=== PATIENT | female | born 1950 | race African-American/Black ===

== ENCOUNTER 2017-01-26 15:36 | Inpatient (IN) | payer MEDICARE ==
[~2017-01-26] VITALS: Ht 160 cm; Wt 100.1 kg
[2017-01-26] VITALS (8 sets, daily range): BP systolic 173–205; BP diastolic 75–111; PULSE 85–118; RESP 16–26; O2SAT 96–100
--- NOTE | 2017-01-26 15:56 | PD ---
HPI Chief Complaint: Stroke Alert Time Seen by Provider: 15:44 Travel History International Travel<30 days: No Contact w/Intl Traveler<30days: No Traveled to known affect area: No History of Present Illness HPI BROUGHT IN BY EVAC STROKE ALERT, EMS STATES 3HRS AGO LAST SEEN NORMAL, THIS WAS QUESTIONED AND FAMILY CALLED BUT BEST ANSWER IS THAT FACIAL DROOP WAS NOTED MAYBE AROUND NOON...BUT THAT SHE HAD BEEN EXHIBITING ABNORMAL RECALL AND CONFUSION SINCE LAST NIGHT. PFSH Social History Tobacco Use: No Allergies-Medications (Allergen,Severity, Reaction): Coded Allergies: Penicillin (Verified Allergy, Severe, Wheezing, 01/26/17) Reported Meds & Prescriptions Reported Meds & Active Scripts Active Active Prescriptions or Reported Medications Unobtainable Review of Systems Except as stated in HPI: all other systems reviewed are Neg Neurologic: Positive: Slurred Speech, Sensory Disturbance Physical Exam Narrative GENERAL: SKIN: Warm and dry. HEAD: Atraumatic. Normocephalic. EYES: Pupils equal and round. No scleral icterus. No injection or drainage. ENT: No nasal bleeding or discharge. Mucous membranes pink and moist. NECK: Trachea midline. No JVD. CARDIOVASCULAR: Regular rate and rhythm. RESPIRATORY: No accessory muscle use. Clear to auscultation. Breath sounds equal bilaterally. GASTROINTESTINAL: Abdomen soft, non-tender, nondistended. Hepatic and splenic margins not palpable. MUSCULOSKELETAL: Extremities without clubbing, cyanosis, or edema. No obvious deformities. NEUROLOGICAL: Awake ALERT, SLURRED SPEECH, LEFT SIDED FACIAL PALSY, LLE 3/5, RUE /LUE/RLE 5/5 STRENGTH PSYCHIATRIC: Appropriate mood and affect; insight and judgment normal. Data Data Last Documented VS Vital Signs Date Time Temp Pulse Resp B/P Pulse Ox O2 Delivery O2 Flow Rate FiO2 01/26/17 16:35 93 21 173/111 100 01/26/17 16:04 Room Air Orders Diet Npo (01/26/17 Dinner) Activity Bed Rest (01/26/17 ) Electrocardiogram (01/26/17 ) I-Stat Creatinine (01/26/17 15:44) I-Stat Profile (01/26/17 15:44) Prothrombin Time / Inr (Pt) (01/26/17 15:44) Act Partial Throm Time (Ptt) (01/26/17 15:44) Complete Blood Count With Diff (01/26/17 15:44) Fibrinogen (01/26/17 15:44) Creatine Kinase (Cpk) (01/26/17 15:44) Troponin I (01/26/17 15:44) Ua Includes Microscopic (01/26/17 15:44) Drug Screen, Random Urine (01/26/17 15:44) Type And Screen (01/26/17 15:44) Ct Brain W/O Iv Contrast(Rout) (01/26/17 ) Chest, Single Ap (01/26/17 ) Cta Brain W Iv Contrast W 3d (01/26/17 15:44) Cta Neck W Iv Contrast W 3d (01/26/17 15:44) Ct Cerebral Perf W Iv Cont W3d (01/26/17 15:44) Beta Hcg (Quant/Titer) (01/26/17 15:44) Consult Neurology (01/26/17 ) Blood Glucose (01/26/17 15:44) Ecg Monitoring (01/26/17 15:44) Neuro Checks Q2HX12,Q4H (01/26/17 15:44) Nursing Bedside Swallow Assess .ONCE (01/26/17 15:44) Iv Access Insert/Monitor (01/26/17 15:44) NPO (01/26/17 15:44) Oximetry (01/26/17 15:44) Oxygen Administration (01/26/17 15:44) Resp Oxygen Blaine C Titrat 1-4 L (01/26/17 15:44) Cath For Specimen (01/26/17 15:44) Aspirin Chew (Aspirin Chew) (01/26/17 16:30) Sodium Bicarbonate 8.4% Inj (Sodium Bica (01/26/17 16:30) Albuterol Concentrated Neb (Albuterol Co (01/26/17 16:30) (Hub Use Only)Inp Phy Cons/Ref (01/26/17 ) Albuterol Neb (Albuterol Neb) (01/26/17 16:32) Labetalol Inj (Trandate Inj) (01/26/17 16:45) Iohexol 350 Inj (Omnipaque 350 Inj) (01/26/17 16:35) CKMB (01/26/17 15:48) CKMB% (01/26/17 15:48) Admit Order (Ed Use Only) (01/26/17 16:50) Labs Laboratory Tests Test 01/26/17 01/26/17 15:48 15:54 Bedside Hemoglobin 15.3 G/DL Bedside Hematocrit 45.0 % Bedside Sodium 135 MMOL/L Bedside Potassium 6.9 MMOL/L Bedside Chloride 104 MMOL/L Bedside Blood Urea Nitrogen 24 MG/DL Bedside Creatinine 1.0 MG/DL Bedside Glucose 343 MG/DL Total Creatine Kinase 268 U/L Creatine Kinase MB 0.8 NG/ML Creatine Kinase MB % 0.3 % Troponin I 0.03 NG/ML Human Chorionic Gonadotropin, 3 MIU/ML Quant White Blood Count 12.4 TH/MM3 Red Blood Count 4.82 MIL/MM3 Hemoglobin 14.5 GM/DL Hematocrit 44.1 % Mean Corpuscular Volume 91.5 FL Mean Corpuscular Hemoglobin 30.1 PG Mean Corpuscular Hemoglobin 32.9 % Concent Red Cell Distribution Width 13.1 % Platelet Count 282 TH/MM3 Mean Platelet Volume 10.0 FL Neutrophils (%) (Auto) 78.3 % Lymphocytes (%) (Auto) 15.3 % Monocytes (%) (Auto) 5.8 % Eosinophils (%) (Auto) 0.1 % Basophils (%) (Auto) 0.5 % Neutrophils # (Auto) 9.7 TH/MM3 Lymphocytes # (Auto) 1.9 TH/MM3 Monocytes # (Auto) 0.7 TH/MM3 Eosinophils # (Auto) 0.0 TH/MM3 Basophils # (Auto) 0.1 TH/MM3 CBC Comment DIFF FINAL Differential Comment Prothrombin Time 10.6 SEC Prothromb Time International 1.0 RATIO Ratio Activated Partial 25.3 SEC Thromboplast Time Fibrinogen 442 mg/dL Blood Type O POSITIVE Antibody Screen NEGATIVE Blood Bank Comment [facility] Medical Decision Making Medical Screen Exam Complete: Yes Emergency Medical Condition: Yes Medical Record Reviewed: Yes Interpretation(s) NSR, 94, LVH, NO STEMI PATTERN NOTED Differential Diagnosis ICH V CVA Narrative Course UNCLEAR TIMING BASED ON HISTORY...HOWEVER CT FINDINGS PER RADIOLOGIST ARE C/W STROKE FINDINGS THAT ARE AT LEAST 8HRS OLD, THUS PT IS OUT OF TPA WINDOW, DR AQUINO (NEURO) AGREES AND REQUESTS WOKUP WITH ASPIRIN 325MG. Critical Care Narrative CRITICAL CARE NOTE: With evaluation of the patient, labs, EKG, receipt of radiologic studies, administration of medications, reevaluation the patient and discussion of the patient with the admitting physicians, the total critical care time was [60] minutes. Time to perform other separately billable procedures was not included in the critical care time. Physician Communication Physician Communication SPOKE WITH DR AQUINO, AND RADIOLOGIST, PT IS HAVING CVA BUT OUTSIDE OF WINDOW AND WILL NOT TPA Diagnosis Primary Impression: Ischemic cerebrovascular accident (CVA) of frontal lobe Admitting Information Admitting Physician Requests: Admit Scripts Unable to Obtain Active Prescriptions or Reported Meds Adonay Phillip MD Jan 26, 2017 15:56 Adonay Phillip MD Jan 26, 2017 15:56
[2017-01-26 16:05] LABS: AUTOMATED NEUTROPHIL # 9.7 TH/MM3 (1.8-7.7); BASOPHIL # 0.1 TH/MM3 (0-0.2); BASOPHIL % 0.5 % (0.0-2.0); EOSINOPHIL % 0.1 % (0.0-4.0); HEMATOCRIT 44.1 % (35.0-46.0); HEMO FLAGS DIFF FINAL; LYMPH % 15.3 % (9.0-44.0); LYMPHOCYTE # 1.9 TH/MM3 (1.0-4.8); MEAN CELL VOLUME 91.5 FL (80.0-100.0); MEAN CORPUSCULAR HEMOGLOBIN 30.1 PG (27.0-34.0); MEAN CORPUSCULAR HGB CONC 32.9 % (32.0-36.0); MONO % 5.8 % (0.0-8.0); NEUT % 78.3 % (16.0-70.0); PLATELET COUNT 282 TH/MM3 (150-450); RED BLOOD COUNT 4.82 MIL/MM3 (4.00-5.30); RED CELL DISTRIBUTION WIDTH 13.1 % (11.6-17.2); WHITE BLOOD COUNT 12.4 TH/MM3 (4.0-11.0)
[2017-01-26 16:11] LABS: I-STAT POTASSIUM 6.9 MMOL/L (3.5-4.9)
--- NOTE | 2017-01-26 16:13 | RADRPT ---
EXAM DATE/TIME: 01/26/2017 15:54 [facility] COMPARISON: No previous studies available for comparison. INDICATIONS : Lethargy, poss cva. RADIATION DOSE: 48.81 CTDIvol (mGy) This report was called by Dr. Agarwal to Dr. Pihllip at 4: 07 PM on 01/26/2017. MEDICAL HISTORY : Hypertension. diabetes, high colesterol SURGICAL HISTORY : None. ENCOUNTER: Initial ACUITY: 1 day PAIN SCALE: Non-responsive LOCATION: Bilateral cranial TECHNIQUE: Multiple contiguous axial images were obtained of the head. Using automated exposure control and adj ustment of the mA and/or kV according to patient size, radiation dose was kept as low as reasonably a chievable to obtain optimal diagnostic quality images. FINDINGS: CEREBRUM: There is a well-defined area of low density cytotoxic edema involving the right frontal lobe in the m id to low convexity and extending into the right basal ganglia. Ventricles are normal in size. No ev idence of midline shift, mass lesion, hemorrhage or acute infarction. No extra-axial fluid collectio ns are seen. POSTERIOR FOSSA: The cerebellum and brainstem demonstrate no acute finding. The 4th ventricle is midline. The cerebe llopontine angle is unremarkable. EXTRACRANIAL: Visualized sinuses are clear. SKULL: The calvaria is intact. No evidence of skull fracture. CONCLUSION: 1. There is a band of low density in the right frontal lobe representing cytotoxic edema likely repre senting an area of recent ischemia but likely at least 6-8 hours ago. There is no associated hemorrha ge or significant mass effect. 2. No other acute finding is identified. Juan Agarwal MD on January 26, 2017 at 16:05 Board Certified Radiologist. This report was verified electronically.
[2017-01-26 16:15] LABS: APTT (PATIENT) 25.3 SEC (24.3-30.1); PROTHROMBIN TIME - PATIENT 10.6 SEC (9.8-11.6)
[2017-01-26] MEDS ORDERED: SODIUM BICARBONATE 8.4% SOLN 50 MEQ/50 ML VIAL SLOW IVP ONE (16:30)
[2017-01-26] MEDS ORDERED: RESP: ALBUTEROL CONC 2.5 MG/0.5 ML NEB INH ONE (16:30)
[2017-01-26] MEDS ORDERED: ASPIRIN 81 MG CHEW TAB CHEW ONE (16:30)
[2017-01-26] MEDS ORDERED: RESP: ALBUTEROL 2.5 MG/3 ML NEB (SCH) ONE (16:32)
[2017-01-26] MEDS ORDERED: IOHEXOL 350 MG/ML 10 ML VIAL (for RAD DIAG) IV ONE (16:35)
[2017-01-26] MEDS ORDERED: LABETALOL HCL 100 MG/20 ML VIAL IV PUSH ONE ×2 (16:45→23:45)
[2017-01-26] MEDS ORDERED: INSULIN HUMAN REGULAR 1,000 UNITS/10 ML VIAL IV PUSH ONE (16:45)
--- NOTE | 2017-01-26 16:47 | RADRPT ---
EXAM DATE/TIME: 01/26/2017 16:11 [facility] COMPARISON: CT BRAIN W/O CONTRAST, January 26, 2017, 15:54. INDICATIONS : Lethargy poss cva IV CONTRAST: 100 cc Omnipaque 350 (iohexol) IV ; Cumulative dose for multiple exams. RADIATION DOSE: 27.80 CTDIvol (mGy) ; Combined studies MEDICAL HISTORY : Hypertension. Cholelithiasis. diabetes, high colesterol SURGICAL HISTORY : None. ENCOUNTER: Initial ACUITY: 1 day PAIN SCALE: Non-responsive LOCATION: Bilateral cranial TECHNIQUE: Volumetric scanning was performed using a multi-row detector CT scanner. The data was post processed with a variety of visualization algorithms including full volume maximum intensity projection, multi -planar sliding thin slab reformation, curved planar reformation, and surface rendering techniques. Using automated exposure control and adjustment of the mA and/or kV according to patient size, radiat ion dose was kept as low as reasonably achievable to obtain optimal diagnostic quality images. FINDINGS: CT examination earlier demonstrated possible subacute right anterior MCA territory infarct with a wel l-demarcated band of cytotoxic edema extending from the right anterior parietal mid convexities to th e right basal ganglia. There is no evidence for large vessel occlusion involving the right M1 or prox imal M2 branches although clearly there is decreased vascularity in the region of cytotoxic edema. There is no evidence for aneurysm, vessel truncation or stenosis, and no evidence for vascular malfor mation. There is origin of the right [employer]. Codominant vertebral arteries with patent basilar art alfonzo. Patent posterior cerebral arteries. CONCLUSION: 1. No evidence for large vessel occlusion involving the right carotid or MCA branches to account for the apparent Subacute right anterior MCA territory infarction. Consider MRI examination to evaluate f or underlying lesion once patient is stable. Frank Davidson MD on January 26, 2017 at 16:34 Board Certified Radiologist. This report was verified electronically.
[2017-01-26 16:48] LABS: CKMB 0.8 NG/ML (0.5-3.6)
--- NOTE | 2017-01-26 16:56 | RADRPT ---
EXAM DATE/TIME: 01/26/2017 16:28 [facility] COMPARISON: No previous studies available for comparison. INDICATIONS : Stroke alert. Chest pain. MEDICAL HISTORY : None. SURGICAL HISTORY : None. ENCOUNTER: Initial ACUITY: 1 day PAIN SCORE: 0/10 LOCATION: Bilateral chest FINDINGS: A single view of the chest demonstrates the lungs to be symmetrically aerated without evidence of mas s, infiltrate or effusion. The cardiomediastinal contours are unremarkable. Osseous structures are intact. CONCLUSION: No acute cardiopulmonary disease. Frank Davidson MD on January 26, 2017 at 16:54 Board Certified Radiologist. This report was verified electronically.
[2017-01-26] MEDS ORDERED: INSULIN HUMAN REGULAR 1,000 UNITS/10 ML VIAL SQ ONE (17:00)
[2017-01-26] MEDS ORDERED: GLUCAGON 1 MG/ML VIAL OTHER PRN (17:15)
[2017-01-26] MEDS ORDERED: DEXTROSE 50% IN WATER 50 ML VIAL(D50) IV PRN (17:15)
--- NOTE | 2017-01-26 17:16 | RADRPT ---
EXAM DATE/TIME: 01/26/2017 16:11 [facility] COMPARISON: No previous studies available for comparison. INDICATIONS : Stroke alert, lethargy. IV CONTRAST: 100 cc Omnipaque 350 (iohexol) IV ; Cumulative dose for multiple exams. RADIATION DOSE: 27.80 CTDIvol (mGy) ; Combined studies MEDICAL HISTORY : Hypertension. Diabetes, high cholesterol SURGICAL HISTORY : None. ENCOUNTER: Initial ACUITY: 1 day PAIN SCALE: Non-responsive LOCATION: Bilateral neck Elevated flow velocities and ICA/CCA ratios have been found to correlate with increased degrees of vessel stenosis, calculated as percentage of diameter relative to a normal segment of distal ICA/CCA. TECHNIQUE: Volumetric scanning was performed using a multirow detector CT scanner. The data was post processed with a variety of visualization algorithms including full-volume maximum intensity projection, multip lanar sliding thin-slab reformation, curved-planar reformation, and surface-rendering techniques. Us ing automated exposure control and adjustment of the mA and/or kV according to patient size, radiatio n dose was kept as low as reasonably achievable to obtain optimal diagnostic quality images. FINDINGS: AORTIC ARCH: There is Center 3 vessel arch anatomy. The proximal arch vessels are tortuous but otherwise patent. RIGHT CAROTID: The common carotid artery is intact. The carotid bulb has a normal configuration. There are calcified plaque noted in the distal bulb at the origin of the internal and external carotid arteries. Result in mild to moderate external carotid artery stenosis. Mild stenosis of the internal carotid artery or igin. The internal carotid artery lumen is otherwise smooth without stenosis. LEFT CAROTID: The common carotid artery is intact. The carotid bulb has a normal configuration and contains mild c alcified plaque extending to the origin of the internal carotid artery. There is mild stenosis of the internal iliac artery origin. The internal carotid artery lumen is otherwise smooth without stenosis . The external carotid artery is intact. VERTEBRALS: The vertebral arteries have a symmetric diameter. No stenotic lesions are seen. Miscellaneous: Visualized lung apices are clear. Thyroid appears unremarkable by CT. There is no significant cervica l mass. CONCLUSION: 1. Mild calcified plaque in the carotid bulbs bilaterally without significant flow-limiting stenosis. No evidence for dissection or other vascular abnormality. Frank Davidson MD on January 26, 2017 at 17:06 Board Certified Radiologist. This report was verified electronically.
--- NOTE | 2017-01-26 17:20 | HHI.HP ---
[facility] No Primary Care Physician Admission Diagnosis ACUTE CVA (RIGHT FRONTAL) Diagnoses: (1) Ischemic cerebrovascular accident (CVA) of frontal lobe Diagnosis: Principal Chief Complaint: ' stroke alert'. Travel History International Travel<30 Days: No Contact w/Intl Traveler <30 Da: No Traveled to Known Affected Are: No History of Present Illness patient is a 66 y/o female with history of diabetes and hypertension who was brought to ER as a stroke alert. she says that she ws noted by the family members that she had a left facial droop around noon time earlier today. she denies any headache, vision changes or any focal weakness. she was brought to ER as a stoke alert however since she was out of window she did not receive TPA. Review of Systems Constitutional: DENIES: Fever, Weight loss, Chills, Night Sweats Eyes: DENIES: Blurred vision, Diplopia, Vision loss, Double Vision Ears, nose, mouth, throat: DENIES: Tinnitus, Vertigo, Throat pain, Epistaxis Respiratory: DENIES: Apneas, Cough, Snoring, Wheezing, Hemoptysis, Sputum production, Shortness of breath Cardiovascular: DENIES: Chest pain, Palpitations, Syncope, Dyspnea on Exertion , PND, Lower Extremity Edema, Orthopnea, Claudication Gastrointestinal: DENIES: Abdominal pain, Black stools, Bloody stools, Constipation, Diarrhea, Nausea, Vomiting, Difficulty Swallowing, Anorexia Genitourinary: DENIES: Urinary frequency, Urgency, Hematuria, Dysuria Musculoskeletal: DENIES: Joint pain, Muscle aches, Stiffness, Joint Swelling Integumentary: DENIES: Rash Neurologic: DENIES: Abnormal gait, Headache, Localized weakness, Paresthesias, Seizures, Speech Problems, Tremor, Poor Balance Psychiatric: DENIES: Anxiety, Confusion, Mood changes, Depression, Hallucinations, Agitation, Suicidal Ideation, Homicidal Ideation, Delusions facial droop. Past Family Social History Past Medical History diabetes mellitus hypertension Reported Medications to be verified. Allergies: Coded Allergies: Penicillin (Verified Allergy, Severe, Wheezing, 01/26/17) Active Ordered Medications Current Medications Aspirin (Aspirin Chew) 324 mg ONCE ONCE CHEW Last administered on 01/26/17 17 :06; Start 01/26/17 at 16:30; Stop 01/26/17 at 16:31; Status DC Insulin Human Regular (NovoLIN R INJ) 10 units ONCE ONCE IV PUSH ; Start at 16:45; Stop 01/26/17 at 16:46; Status Cancel Sodium Bicarbonate (Sodium Bicarbonate 8.4% Inj) 50 meq ONCE ONCE SLOW IVP ; Start 01/26/17 at 16:30; Stop 01/26/17 at 16:31; Status DC Albuterol Sulfate (Albuterol Concentrated Neb) 10 mg ONCE ONCE INH Last administered on 01/26/17 16:30; Start 01/26/17 at 16:30; Stop 01/26/17 at 16:31 ; Status DC Albuterol Sulfate (Albuterol Neb) 2.5 mg STK-MED ONCE .ROUTE ; Start 01/26/17 at 16:32; Stop 01/26/17 at 16:33; Status DC Labetalol HCl (Trandate Inj) 5 mg ONCE ONCE IV PUSH ; Start 01/26/17 at 16:45; Stop 01/26/17 at 16:46; Status DC Iohexol (Omnipaque 350 Inj) 100 ml STK-MED ONCE IV Last administered on 16:35; Start 01/26/17 at 16:35; Stop 01/26/17 at 16:36; Status DC Insulin Human Regular (NovoLIN R INJ) 10 units ONCE ONCE SQ Last administered on 01/26/17 17:00; Start 01/26/17 at 17:00; Stop 01/26/17 at 17:01; Status DC Social History no smoking or drinking. Physical Exam Vital Signs Vital Signs Date Time Temp Pulse Resp B/P Pulse Ox O2 Delivery O2 Flow Rate FiO2 01/26/17 16:35 93 21 173/111 100 01/26/17 16:15 95 22 205/85 99 01/26/17 16:04 96 16 184/84 99 Room Air 01/26/17 16:01 98 Room Air 01/26/17 16:01 98 01/26/17 15:56 85 18 197/90 98 Room Air 01/26/17 15:53 96 01/26/17 15:53 98 Room Air Physical Exam GENERAL: This is a well-nourished, well-developed patient, in no apparent distress. SKIN: No rashes, ecchymoses or lesions. Cool and dry. HEAD: Atraumatic. Normocephalic. No temporal or scalp tenderness. EYES: Pupils equal round and reactive. Extraocular motions intact. No scleral icterus. No injection or drainage. ENT: Nose without bleeding, purulent drainage or septal hematoma. Throat without erythema, tonsillar hypertrophy or exudate. Uvula midline. Airway patent. NECK: Trachea midline. No JVD or lymphadenopathy. Supple, nontender, no meningeal signs. CARDIOVASCULAR: Regular rate and rhythm without murmurs, gallops, or rubs. RESPIRATORY: Clear to auscultation. Breath sounds equal bilaterally. No wheezes , rales, or rhonchi. GASTROINTESTINAL: Abdomen soft, non-tender, nondistended. No hepato-splenomegaly , or palpable masses. No guarding. MUSCULOSKELETAL: Extremities without clubbing, cyanosis, or edema. No joint tenderness, effusion, or edema noted. No calf tenderness. Negative Homans sign bilaterally. NEUROLOGICAL: Awake and alert. mild weakness of the left upper and lower extremities. Laboratory Laboratory Tests Test 01/26/17 01/26/17 15:48 15:54 Bedside Hemoglobin 15.3 Bedside Hematocrit 45.0 Bedside Sodium 135 Bedside Potassium 6.9 Bedside Chloride 104 Bedside Blood Urea Nitrogen 24 Bedside Creatinine 1.0 Bedside Glucose 343 Total Creatine Kinase 268 Creatine Kinase MB 0.8 Creatine Kinase MB % 0.3 Troponin I 0.03 Human Chorionic Gonadotropin, 3 Quant White Blood Count 12.4 Red Blood Count 4.82 Hemoglobin 14.5 Hematocrit 44.1 Mean Corpuscular Volume 91.5 Mean Corpuscular Hemoglobin 30.1 Mean Corpuscular Hemoglobin 32.9 Concent Red Cell Distribution Width 13.1 Platelet Count 282 Mean Platelet Volume 10.0 Neutrophils (%) (Auto) 78.3 Lymphocytes (%) (Auto) 15.3 Monocytes (%) (Auto) 5.8 Eosinophils (%) (Auto) 0.1 Basophils (%) (Auto) 0.5 Neutrophils # (Auto) 9.7 Lymphocytes # (Auto) 1.9 Monocytes # (Auto) 0.7 Eosinophils # (Auto) 0.0 Basophils # (Auto) 0.1 CBC Comment DIFF FINAL Differential Comment Prothrombin Time 10.6 Prothromb Time International 1.0 Ratio Activated Partial 25.3 Thromboplast Time Fibrinogen 442 Blood Type O POSITIVE Antibody Screen NEGATIVE Blood Bank Comment Result Diagram: 01/26/17 1554 Imaging Last Impressions Head CTA 01/26/17 1544 Signed Impressions: Service Date/Time: Thursday, January 26, 2017 16:11 - CONCLUSION: 1. No evidence for large vessel occlusion involving the right carotid or MCA branches to account for the apparent Subacute right anterior MCA territory infarction. Consider MRI examination to evaluate for underlying lesion once patient is stable. Frank Davidson MD Head CT 01/26/17 0000 Signed Impressions: Service Date/Time: Thursday, January 26, 2017 15:54 - CONCLUSION: 1. There is a band of low density in the right frontal lobe representing cytotoxic edema likely representing an area of recent ischemia but likely at least 6-8 hours ago. There is no associated hemorrhage or significant mass effect. 2. No other acute finding is identified. Juan Agarwal MD Chest X-Ray 01/26/17 0000 Signed Impressions: Service Date/Time: Thursday, January 26, 2017 16:28 - CONCLUSION: No acute cardiopulmonary disease. Frank Davidson MD EKG; sinus rhythm with LVH Assessment and Plan Assessment and Plan A/P - CVA received aspirin in ER- CTA neck with no significant stenosis- will check echo . consult PT/OT/ ST. neurology consulted. check lipid panel. -hyperkalemia; received insulin, bicarbonate and albuterol- check potassium level this evening. -hypertension; will proceed with permissive hypertension for now. -diabetes mellitus; accu-check with SSI- check A1c -DVT prophylaxis with SCD's Discussed Condition With ER physician, the patient and RN. Physician Certification 2 Midnight Certification Type: Admission for Inpatient Services Order for Inpatient Services The services are ordered in accordance with Medicare regulations or non- Medicare payer requirements, as applicable. In the case of services not specified as inpatient-only, they are appropriately provided as inpatient services in accordance with the 2-midnight benchmark. Estimated LOS (days): 2 days is the estimated time the patient will need to remain in the hospital, assuming treatment plan goals are met and no additional complications. Post-Hospital Plan: Not yet determined Carla Busby MD Jan 26, 2017 17:19
[2017-01-26 17:30] LABS: BLOOD, URINE NEG (NEG); GLUCOSE,URINE 1000 mg/dL (NEG); HYALINE CAST, URINE 5 /lpf (RARE); KETONE, URINE TRACE mg/dL (NEG); MUCUS URINE FEW /lpf (OCC); NITRITE,URINE NEG (NEG); PH, URINE 5.5 (5.0-8.5); URINE COLOR YELLOW (YELLW/STRAW)
[2017-01-26] MEDS ORDERED: ONDANSETRON HCL 4 MG/2 ML VIAL IV PUSH PRN (17:30)
[2017-01-26 17:34] LABS: AMPHETAMINE, URINE NEG (NEG); BARBITURATES, URINE NEG (NEG); COCAINE, URINE NEG (NEG)
--- NOTE | 2017-01-26 18:31 | MB ---
cc: KAYA AQUINO M.D. DATE OF CONSULTATION: 01/26/2017. REASON FOR CONSULTATION: Stroke alert. HISTORY OF PRESENT ILLNESS: The patient is a 66-year-old woman with history of diabetes and hypertension who was brought in as a stroke alert; however, a stroke alert was not accurate because the time of onset is unknown. Basically her family noted that she was not herself yesterday. She did not even remember that her daughter was leaving to go somewhere; however, she did go to the beach with family today and they noted that she had some left facial droop. She states she was not feeling well. She was driving but did not make any mention to family that she had some left leg weakness. No headache, chest pain, shortness of breath, numbness or tingling. PAST MEDICAL HISTORY: 1. Hypertension. 2. Diabetes. ALLERGIES: PENICILLIN. MEDICATIONS: She is supposed to take aspirin daily but she does not, and she admits to that. SOCIAL HISTORY: She denies smoking or alcohol. HOME MEDICATIONS: Please refer to the MAR. PHYSICAL EXAMINATION: VITAL SIGNS: Blood pressure is 185/75, heart rate 118, respiratory rate 26, satting 100% room air. NECK: Neck is supple. HEART: Heart is slightly tachycardic. LUNGS: Appear clear. NEUROLOGICAL EXAMINATION: She is awake and alert. She is oriented. Her speech is not dysarthric. There is a mild left facial droop. Pupils are reactive. Visual longo are full. Left arm - there is no drift but there is a leg lag on the left leg. The left toe is neutral. The right toe is downgoing. Reflexes are trace to 1+. Sensory normal. Cerebellar intact. Gait is withheld. LABORATORY STUDIES: Her potassium is 6.9. I am not sure how accurate this is. Sodium 135. CK 268. Glucose 343. Toxicology is negative. Urine has trace ketones and 1000 glucose. Coag panel: fibrinogen 442. Hematology: White count 12.4, platelets 182,000. IMAGING STUDIES: She had a CT of the head that shows right frontal lobe infarct at least six to eight hours and no mass effect. Her CTA of the [place] of [place] as well as the carotids was really unremarkable for any aneurysm or limiting stenosis. Chest x-ray: Nothing acute seen. IMPRESSION: Right frontal stroke subacute likely due to possible diabetes and hypertension risk factors. RECOMMENDATIONS: 1. Recommend getting an echocardiogram. 2. MRI of the brain. 3. Fasting lipid panel. 4. Put her on aspirin, at least baby aspirin for now. 5. Permissible hypertension. 6. Physical therapy, occupational therapy and speech therapy evaluation. 7. p.r.n. medicines for hypertension. 8. Can use Lovenox for DVT prophylaxis. 9. Depending on other findings, further recommendations will be made accordingly. 10. Her LDL is elevated. She will be on a statin. 11. Maintain telemetry for now. 12. I would also go ahead and check hemoglobin A1c. The patient was on TPA candidate at the time of onset; it was some time yesterday most likely. MD RADHA Bush/CHARLIE /6:00 PM /6:27 PM
[2017-01-26] MEDS: SODIUM CHLOR 0.9% 1000 ML INJ 1,000 ML IV SCH (18:49)
--- NOTE | 2017-01-26 18:59 | RADRPT ---
EXAM DATE/TIME: 01/26/2017 16:11 [facility] COMPARISON: No previous studies available for comparison. INDICATIONS : Stroke alert, lethargy. IV CONTRAST: 100 cc Omnipaque 350 (iohexol) IV ; Cumulative dose for multiple exams. RADIATION DOSE: 248.13 CTDIvol (mGy) MEDICAL HISTORY : Hypertension. Diabetes, high cholesterol. SURGICAL HISTORY : None. ENCOUNTER: Initial ACUITY: 1 day PAIN SCALE: Non-responsive LOCATION: Bilateral cranial TECHNIQUE: CT perfusion of the brain was performed with calculation of input and output functions and generation of color coded blood flow, blood volume and mean transit time maps. Using automated exposure control and adjustment of the mA and/or kV according to patient size, radiation dose was kept as low as reas onably achievable to obtain optimal diagnostic quality images. FINDINGS: There is a wedge-shaped area of elevated mean transit time in the right frontal lobe corresponding wi th the area of decreased density CT. There is severely reduced blood flow in this portion and moderat ruy reduced blood volume. Portions around the periphery demonstrate moderately reduced blood flow and volume. CONCLUSION: Abnormal CT perfusion examination suggesting infarct core in the right frontal lobe corresponding to the area of cytotoxic edema on CT. The infarct core occupies most of the area of decreased density on CT with small peripheral penumbra. Juan Agarwal MD on January 26, 2017 at 18:50 Board Certified Radiologist. This report was verified electronically.
[2017-01-26] MEDS: hydrALAZINE HCL 20 MG/ML VIAL IV PUSH PRN (21:00)
--- NOTE | 2017-01-26 21:19 | RADRPT ---
EXAM DATE/TIME: 01/26/2017 20:33 [facility] COMPARISON: CT BRAIN W/O CONTRAST, January 26, 2017, 15:54. INDICATIONS : CVA. MEDICAL HISTORY : Hypertension. Diabetes mellitus type 2. SURGICAL HISTORY : Discectomy, lumbar. Colon resection. ENCOUNTER: Initial ACUITY: 1 day PAIN SCORE: 0/10 LOCATION: cranial TECHNIQUE: Multiplanar, multisequence MRI of the brain was performed without contrast. FINDINGS: CEREBRUM: Ventricles are normal. There is abnormal flair/T2 signal in the right frontal lobe and right basal ga nglia characteristic of cytotoxic edema. No midline shift, mass lesion, or hemorrhage. No extraaxia l fluid collections are seen. The pituitary gland and suprasellar cistern are normal in configuratio n. WHITE MATTER: No significant signal abnormalities are seen in the white matter. POSTERIOR FOSSA: The cerebellum and brainstem demonstrate no acute finding. The 4th ventricle is midline. The cerebell opontine angle is unremarkable. The cerebellar tonsils are normal in position. DIFFUSION IMAGING: No focal areas of restricted diffusion are seen. No evidence of acute infarction. EXTRACRANIAL: The visualized portions of the orbits and paranasal sinuses are unremarkable. CONCLUSION: 1. The abnormality identified on earlier CT represents an area of subacute ischemia involving the rig ht frontal lobe in the mid convexity and right basal ganglia. There is no hemorrhage. 2. No other acute finding is identified. Juan Agarwal MD on January 26, 2017 at 21:14 Board Certified Radiologist. This report was verified electronically.
[2017-01-26] MEDS: INSULIN ASPART SUPPLEMENTAL SCALE SQ SCH (22:00)
[2017-01-26 23:50] LABS: POTASSIUM 3.5 MEQ/L (3.5-5.1)
[2017-01-27] VITALS (12 sets, daily range): BP systolic 145–207; BP diastolic 70–103; PULSE 70–106; RESP 20–38; TEMP 98.1–98.5; O2SAT 99–100
[2017-01-27] MEDS: SODIUM CHLOR 0.9% 1000 ML INJ 1,000 ML IV SCH ×2 (04:00→15:04)
[2017-01-27 05:10] LABS: AUTOMATED NEUTROPHIL # 6.7 TH/MM3 (1.8-7.7); BASOPHIL # 0.1 TH/MM3 (0-0.2); BASOPHIL % 0.6 % (0.0-2.0); EOSINOPHIL # 0.1 TH/MM3 (0-0.4); EOSINOPHIL % 0.9 % (0.0-4.0); HEMATOCRIT 39.2 % (35.0-46.0); HEMO FLAGS DIFF FINAL; LYMPH % 27.3 % (9.0-44.0); LYMPHOCYTE # 2.9 TH/MM3 (1.0-4.8); MEAN CELL VOLUME 90.5 FL (80.0-100.0); MEAN CORPUSCULAR HEMOGLOBIN 30.8 PG (27.0-34.0); MEAN CORPUSCULAR HGB CONC 34.1 % (32.0-36.0); NEUT % 64.2 % (16.0-70.0); PLATELET COUNT 251 TH/MM3 (150-450); RED BLOOD COUNT 4.33 MIL/MM3 (4.00-5.30); RED CELL DISTRIBUTION WIDTH 13.2 % (11.6-17.2); WHITE BLOOD COUNT 10.5 TH/MM3 (4.0-11.0)
[2017-01-27 05:36] LABS: BICARBONATE 28.2 MEQ/L (21.0-32.0); POTASSIUM 3.3 MEQ/L (3.5-5.1)
[2017-01-27] MEDS: INSULIN ASPART SUPPLEMENTAL SCALE SQ SCH ×4 (06:44→21:51)
--- NOTE | 2017-01-27 09:51 | HHI.PR ---
Subjective Remarks in no acute distress. complaining of mild headache. daughter at the bedside. Objective Vitals Vital Signs Date Time Temp Pulse Resp B/P Pulse Ox O2 Delivery O2 Flow Rate FiO2 01/27/17 06:00 84 01/27/17 04:00 93 01/27/17 02:00 89 01/27/17 00:00 101 01/26/17 22:00 108 01/26/17 17:18 118 26 185/75 100 Room Air 01/26/17 16:35 93 21 173/111 100 01/26/17 16:15 95 22 205/85 99 01/26/17 16:04 96 16 184/84 99 Room Air 01/26/17 16:01 98 Room Air 01/26/17 16:01 98 01/26/17 15:56 85 18 197/90 98 Room Air 01/26/17 15:53 96 01/26/17 15:53 98 Room Air I/O 01/26/17 01/26/17 01/26/17 01/27/17 01/27/17 01/27/17 07:00 15:00 23:00 07:00 15:00 23:00 Intake Total 250 ml 800 ml Output Total 725 ml 550 ml Balance -475 ml 250 ml Intake Oral 0 ml IV Total 250 ml 800 ml Output Urine Total 725 ml 550 ml # Voids 0 Result Diagram: 01/27/17 0403 01/27/17 0403 Imaging Last Impressions Neck CTA 01/26/17 154 Signed Impressions: Service Date/Time: Thursday, January 26, 2017 16:11 - CONCLUSION: 1. Mild calcified plaque in the carotid bulbs bilaterally without significant flow-limiting stenosis. No evidence for dissection or other vascular abnormality. Frank Davidson MD Head/Neck CTA with Brain Perfusion [id number] Signed Impressions: Service Date/Time: Thursday, January 26, 2017 16:11 - CONCLUSION: Abnormal CT perfusion examination suggesting infarct core in the right frontal lobe corresponding to the area of cytotoxic edema on CT. The infarct core occupies most of the area of decreased density on CT with small peripheral penumbra. Juan Agarwal MD Head CTA [id number] Signed Impressions: Service Date/Time: Thursday, January 26, 2017 16:11 - CONCLUSION: 1. No evidence for large vessel occlusion involving the right carotid or MCA branches to account for the apparent Subacute right anterior MCA territory infarction. Consider MRI examination to evaluate for underlying lesion once patient is stable. Frank Davidson MD Head CT 01/26/17 0000 Signed Impressions: Service Date/Time: Thursday, January 26, 2017 15:54 - CONCLUSION: 1. There is a band of low density in the right frontal lobe representing cytotoxic edema likely representing an area of recent ischemia but likely at least 6-8 hours ago. There is no associated hemorrhage or significant mass effect. 2. No other acute finding is identified. Juan Agarwal MD Chest X-Ray 01/26/17 0000 Signed Impressions: Service Date/Time: Thursday, January 26, 2017 16:28 - CONCLUSION: No acute cardiopulmonary disease. Frank Davidson MD Brain MRI 01/26/17 0000 Signed Impressions: Service Date/Time: Thursday, January 26, 2017 20:33 - CONCLUSION: 1. The abnormality identified on earlier CT represents an area of subacute ischemia involving the right frontal lobe in the mid convexity and right basal ganglia. There is no hemorrhage. 2. No other acute finding is identified. Juan Agarwal MD Objective Remarks GENERAL: This is a well-nourished, well-developed patient, in no apparent distress. CARDIOVASCULAR: Regular rate and regular rhythm without murmurs, gallops, or rubs. RESPIRATORY: Clear to auscultation. Breath sounds equal bilaterally. No wheezes , rales, or rhonchi. GASTROINTESTINAL: Abdomen soft, non-tender, nondistended. Normal, active bowel sounds MUSCULOSKELETAL: Extremities without clubbing, cyanosis, or edema. NEURO: Alert & Oriented x4 to person, place, time, situation. Moves all ext x4 Procedures none Medications and IVs Current Medications Aspirin (Aspirin Chew) 324 mg ONCE ONCE CHEW Last administered on 01/26/17t 17 :06; Start 01/26/17 at 16:30; Stop 01/26/17 at 16:31; Status DC Insulin Human Regular (NovoLIN R INJ) 10 units ONCE ONCE IV PUSH ; Start at 16:45; Stop 01/26/17 at 16:46; Status Cancel Sodium Bicarbonate (Sodium Bicarbonate 8.4% Inj) 50 meq ONCE ONCE SLOW IVP Last administered on 01/26/17 17:10; Start 01/26/17 at 16:30; Stop 01/26/17 at 16:31; Status DC Albuterol Sulfate (Albuterol Concentrated Neb) 10 mg ONCE ONCE INH Last administered on 01/26/17 16:30; Start 01/26/17 at 16:30; Stop 01/26/17 at 16:31 ; Status DC Albuterol Sulfate (Albuterol Neb) 2.5 mg STK-MED ONCE .ROUTE ; Start 01/26/17 at 16:32; Stop 01/26/17 at 16:33; Status DC Labetalol HCl (Trandate Inj) 5 mg ONCE ONCE IV PUSH ; Start 01/26/17 at 16:45; Stop 01/26/17 at 17:11; Status DC Iohexol (Omnipaque 350 Inj) 100 ml STK-MED ONCE IV Last administered on 16:35; Start 01/26/17 at 16:35; Stop 01/26/17 at 16:36; Status DC Insulin Human Regular (NovoLIN R INJ) 10 units ONCE ONCE SQ Last administered on 01/26/17 17:00; Start 01/26/17 at 17:00; Stop 01/26/17 at 17:01; Status DC Hydralazine HCl (Apresoline Inj) 10 mg Q8H PRN IV PUSH SBP >200 OR DBP >120 Last administered on 01/26/17 21:00; Start 01/26/17 at 17:15 Dextrose (D50w (Vial) Inj) 50 ml UNSCH PRN IV HYPOGLYCEMIA-SEE COMMENTS; Start 01/26/17 at 17:15 Glucagon (Glucagon Inj) 1 mg UNSCH PRN OTHER HYPOGLYCEMIA-SEE COMMENTS; Start 01/26/17 at 17:15 Insulin Aspart 1 1 ACHS SLIDING SCALE SQ Last administered on 01/27/17 06:44 ; Start 01/26/17 at 21:00 Sodium Chloride (NS 1000 ml Inj) 1,000 ml @ 100 mls/hr Q10H IV Last administered on 01/27/17 04:00; Start 01/26/17 at 18:00 Ondansetron HCl (Zofran Inj) 4 mg Q8HR PRN IV PUSH NAUSEA; Start 01/26/17 at 17 :30 Aspirin (Aspirin Chew) 81 mg DAILY CHEW ; Start 01/27/17 at 09:00 Labetalol HCl (Trandate Inj) 5 mg ONCE ONCE IV PUSH Last administered on t 00:02; Start 01/26/17 at 23:45; Stop 01/26/17 at 23:46; Status DC A/P Assessment and Plan A/P - CVA continue with aspirin- will start on high-intensity statin-pending AST/ALT levels. CTA neck with no significant stenosis- echo pending . consulted PT/OT/ ST. neurology consult appreciated. -hyperkalemia; resolved- now with mild hypokalemia which will be replaced. -hypertension; will proceed with permissive hypertension for now. -diabetes mellitus; accu-check with SSI- check A1c -DVT prophylaxis with lovenox. will transfer to telemetry soon if stable. Carla Busby MD Jan 27, 2017 09:51
[2017-01-27] MEDS ORDERED: POTASSIUM CHLORIDE 20 MEQ CONTROLLED RELEASE TAB PO ONE (10:00)
[2017-01-27] MEDS: ASPIRIN 81 MG CHEW TAB CHEW SCH (10:37)
[2017-01-27] MEDS: ENOXAPARIN SODIUM 40 MG/0.4 ML SYRINGE SQ SCH (10:37)
[2017-01-27] MEDS: ACETAMINOPHEN 325 MG TAB PO PRN (10:39)
[2017-01-27] MEDS: hydrALAZINE HCL 20 MG/ML VIAL IV PUSH PRN ×2 (11:29→21:42)
[2017-01-27 12:44] LABS: ALT (GPT) 17 U/L (10-53); AST (GOT) 15 U/L (15-37)
--- NOTE | 2017-01-27 14:17 | EKG ---
Date Performed: 01/26/2017 Time Performed: 16:35:45 PTAGE: 66 years EKG: Sinus rhythm LEFT VENTRICULAR HYPERTROPHY AND ST-T CHANGE ABNORMAL ECG NO PREVIOUS TRACING DOCTOR: Kvng Barry Interpretating Date/Time 01/27/2017 14:15:09
[2017-01-27] MEDS ORDERED: CLON0.2T PO (14:18)
[2017-01-27] MEDS ORDERED: HYDR-3583 PO (14:18)
[2017-01-27] MEDS ORDERED: LANTINJ SQ (14:18)
--- NOTE | 2017-01-27 14:25 | ECHRPT ---
Indication: CVA/TIA CONCLUSIONS The left ventricular systolic function is normal with an estimated ejection fraction in the range of 55-60%. Mild concentric left ventricular hypertrophy. Normal left ventricular size. The left atrial size is mildly dilated. [id number] mitral valve regurgitation. Structurally normal tricuspid valve. There is mild to moderate tricuspid valve regurgitation. The estimated pulmonary arterial pressure is 46 mmHg. BP: 173 / 111 HR: 93 Rhythm: Sinus MEASUREMENTS (Male / Female) Normal Values Technical Quality:Good 2D ECHO LV Diastolic Diameter PLAX 4.5 cm 4.2 - 5.9 / 3.9 - 5.3 cm LV Systolic Diameter PLAX 3.4 cm IVS Diastolic Thickness 1.3 cm 0.6 - 1.0 / 0.6 - 0.9 cm LVPW Diastolic Thickness 1.3 cm 0.6 - 1.0 / 0.6 - 0.9 cm LV Relative Wall Thickness 0.6 RV Internal Dim ED PLAX 2.3 cm LVOT Diameter 2.0 cm M-MODE Aortic Root Diameter MM 2.6 cm LA Systolic Diameter MM 4.6 cm LA Ao Ratio MM 1.8 AV Cusp Separation MM 1.9 cm DOPPLER AV Peak Velocity 149.0 cm/s AV Peak Gradient 8.9 mmHg LVOT Peak Velocity 131.0 cm/s LVOT Peak Gradient 6.9 mmHg AV Area Cont Eq pk 2.8 cm MR Peak Velocity 533.0 cm/s MR Peak Gradient 113.6 mmHg Mitral E Point Velocity 77.5 cm/s Mitral A Point Velocity 96.7 cm/s Mitral E to A Ratio 0.8 LV E' Lateral Velocity 6.0 cm/s Mitral E to LV E' Lateral Ratio 12.8 LV E' Septal Velocity 5.0 cm/s Mitral E to LV E' Septal Ratio 15.6 TR Peak Velocity 278.0 cm/s TR Peak Gradient 30.9 mmHg PV Peak Velocity 118.0 cm/s PV Peak Gradient 5.6 mmHg FINDINGS LEFT VENTRICLE The left ventricular systolic function is normal with an estimated ejection fraction in the range of 55-60%. Mild concentric left ventricular hypertrophy. Normal left ventricular size. RIGHT VENTRICLE Normal right ventricular size and systolic function. LEFT ATRIUM The left atrial size is mildly dilated. RIGHT ATRIUM The right atrial size is normal. ATRIAL SEPTUM Normal atrial septal thickness without atrial level shunting by limited color doppler interrogation. AORTA The aortic root and proximal ascending aorta are normal in size on limited imaging. MITRAL VALVE [id number] mitral valve regurgitation. AORTIC VALVE Trileaflet aortic valve. No aortic valve stenosis or regurgitation. TRICUSPID VALVE Structurally normal tricuspid valve. There is mild to moderate tricuspid valve regurgitation. The estimated pulmonary arterial pressure is 46 mmHg. PULMONARY VALVE The pulmonary valve is not well visualized. VESSELS The inferior vena cava is normal in size. PERICARDIUM No pericardial effusion. Rik Galicia MD (Electronically Signed) Final Date:27 January 2017 14:24
[2017-01-27 16:40] LABS: HEMOGLOBIN A1a 0.9 %; HEMOGLOBIN A1b 2.4 %; HEMOGLOBIN P3 4.4 %
[2017-01-27] MEDS: ATORVASTATIN 80 MG TAB PO SCH (21:42)
[2017-01-28] VITALS (10 sets, daily range): BP systolic 121–182; BP diastolic 67–84; PULSE 82–113; RESP 17–26; TEMP 98–99; O2SAT 95–100
[2017-01-28] MEDS: ASPIRIN 81 MG CHEW TAB CHEW SCH (09:05)
[2017-01-28] MEDS: ENOXAPARIN SODIUM 40 MG/0.4 ML SYRINGE SQ SCH (09:06)
[2017-01-28] MEDS: SODIUM CHLOR 0.9% 1000 ML INJ 1,000 ML IV SCH ×3 (09:08→20:00)
[2017-01-28] MEDS: INSULIN ASPART SUPPLEMENTAL SCALE SQ SCH ×4 (09:09→20:17)
--- NOTE | 2017-01-28 10:38 | HHI.PR ---
Subjective Remarks in no acute distress. denies pain. no new complaints. BP noted that remained elevated over night. d/w the RN and no acute issues over night. Objective Vitals Vital Signs Date Time Temp Pulse Resp B/P Pulse Ox O2 Delivery O2 Flow Rate FiO2 01/28/17 06:00 101 01/28/17 04:00 98.8 96 19 148/76 100 01/28/17 04:00 96 01/28/17 02:00 100 01/28/17 00:00 98.4 82 25 121/68 100 01/28/17 00:00 113 01/27/17 22:00 106 01/27/17 20:00 82 01/27/17 20:00 98.3 82 38 205/86 100 01/27/17 19:00 100 Room Air 01/27/17 18:00 96 01/27/17 16:00 98.1 78 20 145/77 100 01/27/17 16:00 78 01/27/17 14:00 81 01/27/17 12:00 98.1 100 20 160/70 99 01/27/17 12:00 100 I/O 01/27/17 01/27/17 01/27/17 01/28/17 01/28/17 01/28/17 07:00 15:00 23:00 07:00 15:00 23:00 Intake Total 800 ml 1043 ml 840 ml 240 ml Output Total 550 ml 725 ml 450 ml 550 ml Balance 250 ml 318 ml 390 ml -310 ml Intake Oral 240 ml 840 ml 240 ml IV Total 800 ml 803 ml 0 ml 0 ml Output Urine Total 550 ml 725 ml 450 ml 350 ml Emesis 200 ml Result Diagram: 01/27/17 0403 01/27/17 0403 Imaging Last Impressions Neck CTA 01/26/17 1544 Signed Impressions: Service Date/Time: Thursday, January 26, 2017 16:11 - CONCLUSION: 1. Mild calcified plaque in the carotid bulbs bilaterally without significant flow-limiting stenosis. No evidence for dissection or other vascular abnormality. Frank Davidson MD Head/Neck CTA with Brain Perfusion 01/26/17 1544 Signed Impressions: Service Date/Time: Thursday, January 26, 2017 16:11 - CONCLUSION: Abnormal CT perfusion examination suggesting infarct core in the right frontal lobe corresponding to the area of cytotoxic edema on CT. The infarct core occupies most of the area of decreased density on CT with small peripheral penumbra. Juan Agarwal MD Head CTA 01/26/17 1544 Signed Impressions: Service Date/Time: Thursday, January 26, 2017 16:11 - CONCLUSION: 1. No evidence for large vessel occlusion involving the right carotid or MCA branches to account for the apparent Subacute right anterior MCA territory infarction. Consider MRI examination to evaluate for underlying lesion once patient is stable. Frank Davidson MD Head CT 01/26/17 0000 Signed Impressions: Service Date/Time: Thursday, January 26, 2017 15:54 - CONCLUSION: 1. There is a band of low density in the right frontal lobe representing cytotoxic edema likely representing an area of recent ischemia but likely at least 6-8 hours ago. There is no associated hemorrhage or significant mass effect. 2. No other acute finding is identified. Juan Agarwal MD Chest X-Ray 01/26/17 0000 Signed Impressions: Service Date/Time: Thursday, January 26, 2017 16:28 - CONCLUSION: No acute cardiopulmonary disease. Frank Davidson MD Brain MRI 01/26/17 0000 Signed Impressions: Service Date/Time: Thursday, January 26, 2017 20:33 - CONCLUSION: 1. The abnormality identified on earlier CT represents an area of subacute ischemia involving the right frontal lobe in the mid convexity and right basal ganglia. There is no hemorrhage. 2. No other acute finding is identified. Juan Agarwal MD Objective Remarks GENERAL: This is a well-nourished, well-developed patient, in no apparent distress. CARDIOVASCULAR: Regular rate and regular rhythm without murmurs, gallops, or rubs. RESPIRATORY: Clear to auscultation. Breath sounds equal bilaterally. No wheezes , rales, or rhonchi. GASTROINTESTINAL: Abdomen soft, non-tender, nondistended. Normal, active bowel sounds MUSCULOSKELETAL: Extremities without clubbing, cyanosis, or edema. NEURO: Alert & Oriented x4 to person, place, time, situation. Moves all ext x4 Procedures none Medications and IVs Current Medications Aspirin (Aspirin Chew) 324 mg ONCE ONCE CHEW Last administered on 01/26/17t 17 :06; Start 01/26/17 at 16:30; Stop 01/26/17 at 16:31; Status DC Insulin Human Regular (NovoLIN R INJ) 10 units ONCE ONCE IV PUSH ; Start at 16:45; Stop 01/26/17 at 16:46; Status Cancel Sodium Bicarbonate (Sodium Bicarbonate 8.4% Inj) 50 meq ONCE ONCE SLOW IVP Last administered on 01/26/17 17:10; Start 01/26/17 at 16:30; Stop 01/26/17 at 16:31; Status DC Albuterol Sulfate (Albuterol Concentrated Neb) 10 mg ONCE ONCE INH Last administered on 01/26/17 16:30; Start 01/26/17 at 16:30; Stop 01/26/17 at 16:31 ; Status DC Albuterol Sulfate (Albuterol Neb) 2.5 mg STK-MED ONCE .ROUTE ; Start 01/26/17 at 16:32; Stop 01/26/17 at 16:33; Status DC Labetalol HCl (Trandate Inj) 5 mg ONCE ONCE IV PUSH ; Start 01/26/17 at 16:45; Stop 01/26/17 at 17:11; Status DC Iohexol (Omnipaque 350 Inj) 100 ml STK-MED ONCE IV Last administered on 16:35; Start 01/26/17 at 16:35; Stop 01/26/17 at 16:36; Status DC Insulin Human Regular (NovoLIN R INJ) 10 units ONCE ONCE SQ Last administered on 01/26/17 17:00; Start 01/26/17 at 17:00; Stop 01/26/17 at 17:01; Status DC Hydralazine HCl (Apresoline Inj) 10 mg Q8H PRN IV PUSH SBP >200 OR DBP >120 Last administered on 01/27/17 21:42; Start 01/26/17 at 17:15 Dextrose (D50w (Vial) Inj) 50 ml UNSCH PRN IV HYPOGLYCEMIA-SEE COMMENTS; Start 01/26/17 at 17:15 Glucagon (Glucagon Inj) 1 mg UNSCH PRN OTHER HYPOGLYCEMIA-SEE COMMENTS; Start 01/26/17 at 17:15 Insulin Aspart 1 1 ACHS SLIDING SCALE SQ Last administered on 01/28/17 09:09 ; Start 01/26/17 at 21:00 Sodium Chloride (NS 1000 ml Inj) 1,000 ml @ 100 mls/hr Q10H IV Last administered on 01/27/17 15:04; Start 01/26/17 at 18:00 Ondansetron HCl (Zofran Inj) 4 mg Q8HR PRN IV PUSH NAUSEA Last administered on 01/27/17 23:46; Start 01/26/17 at 17:30 Aspirin (Aspirin Chew) 81 mg DAILY CHEW Last administered on 01/28/17 09:05; Start 01/27/17 at 09:00 Labetalol HCl (Trandate Inj) 5 mg ONCE ONCE IV PUSH Last administered on 00:02; Start 01/26/17 at 23:45; Stop 01/26/17 at 23:46; Status DC Potassium Chloride (KCl) 20 meq ONCE ONCE PO Last administered on 01/27/17 10 :37; Start 01/27/17 at 10:00; Stop 01/27/17 at 10:01; Status DC Enoxaparin Sodium (Lovenox Inj) 40 mg Q24H SQ Last administered on 01/28/17 09 :06; Start 01/27/17 at 10:00 Acetaminophen (Tylenol) 650 mg Q4H PRN PO PAIN1-10/HEADACHE/FEVER Last administered on 01/27/17 10:39; Start 01/27/17 at 10:00 Atorvastatin Calcium (Lipitor) 80 mg HS PO Last administered on 01/27/17 21:42 ; Start 01/27/17 at 21:00 A/P Assessment and Plan A/P - CVA continue with aspirin and high-intensity statin- CTA neck with no significant stenosis- echo with EF 55% and LVH. consulted PT/OT/ ST. neurology consult appreciated. -hyperkalemia; resolved- now with mild hypokalemia which was replaced. -hypertension; start on lisinopril - vasotec prn- will continue to monitor and adjust the regimen accordingly. -diabetes mellitus; resume levemir - accu-check with SSI- A1c 9.8- consult magnetic observer. -DVT prophylaxis with lovenox. dc abraham cath. transfer to telemetry. d/w the patient, her daughter and RN. will transfer to telemetry soon if stable. Discharge Planning dc planning within the next 2-3 days if remains stable with better BP control. case management consulted for dc planning to rehab. Carla Busby MD Jan 28, 2017 10:38
[2017-01-28] MEDS: LISINOPRIL 10 MG TAB PO SCH (15:05)
[2017-01-28] MEDS: ATORVASTATIN 80 MG TAB PO SCH (20:16)
[2017-01-28] MEDS: INSULIN DETEMIR 100 UNITS/ML VIAL SQ SCH (20:17)
[2017-01-29] VITALS (8 sets, daily range): BP systolic 129–178; BP diastolic 62–72; PULSE 61–93; RESP 16–20; TEMP 97.9–99.7; O2SAT 96–99
[2017-01-29] MEDS: SODIUM CHLOR 0.9% 1000 ML INJ 1,000 ML IV SCH ×2 (03:58→16:00)
[2017-01-29] MEDS: INSULIN ASPART SUPPLEMENTAL SCALE SQ SCH ×4 (05:43→20:33)
[2017-01-29] MEDS: ACETAMINOPHEN 325 MG TAB PO PRN (06:51)
[2017-01-29 08:29] LABS: POTASSIUM 3.7 MEQ/L (3.5-5.1)
[2017-01-29] MEDS: LISINOPRIL 10 MG TAB PO SCH (09:32)
[2017-01-29] MEDS: ASPIRIN 81 MG CHEW TAB CHEW SCH (09:32)
--- NOTE | 2017-01-29 10:20 | HHI.PR ---
Subjective Remarks resting comfortably with no distress. no new complaints. d/w the RN and no acute issues over night. family at the bedside. Objective Vitals Vital Signs Date Time Temp Pulse Resp B/P Pulse Ox O2 Delivery O2 Flow Rate FiO2 01/29/17 08:53 82 01/29/17 08:10 98.5 61 18 178/72 98 01/29/17 04:20 98.6 67 17 139/72 97 01/29/17 00:01 99.1 79 16 129/62 97 01/28/17 20:11 98.0 85 17 160/72 97 01/28/17 16:32 99.0 90 18 145/67 95 01/28/17 14:00 85 01/28/17 12:00 98.4 90 22 182/84 100 01/28/17 12:00 90 I/O 01/28/17 01/28/17 01/28/17 01/29/17 01/29/17 01/29/17 06:59 14:59 22:59 06:59 14:59 22:59 Intake Total 240 ml 240 ml 240 ml Output Total 550 ml 150 ml Balance -310 ml 90 ml 240 ml Intake Oral 240 ml 240 ml 240 ml IV Total 0 ml 0 ml Output Urine Total 350 ml 150 ml Emesis 200 ml # Voids 4 # Bowel Movements 1 Result Diagram: 01/27/17 0403 01/29/17 0721 Imaging Last Impressions Neck CTA 01/26/171543 Signed Impressions: Service Date/Time: Thursday, January 26, 2017 16:11 - CONCLUSION: 1. Mild calcified plaque in the carotid bulbs bilaterally without significant flow-limiting stenosis. No evidence for dissection or other vascular abnormality. Frank Davidson MD Head/Neck CTA with Brain Perfusion 01/26/171543 Signed Impressions: Service Date/Time: Thursday, January 26, 2017 16:11 - CONCLUSION: Abnormal CT perfusion examination suggesting infarct core in the right frontal lobe corresponding to the area of cytotoxic edema on CT. The infarct core occupies most of the area of decreased density on CT with small peripheral penumbra. Juan Agarwal MD Head CTA 01/26/171543 Signed Impressions: Service Date/Time: Thursday, January 26, 2017 16:11 - CONCLUSION: 1. No evidence for large vessel occlusion involving the right carotid or MCA branches to account for the apparent Subacute right anterior MCA territory infarction. Consider MRI examination to evaluate for underlying lesion once patient is stable. Frank Davidson MD Head CT 01/26/17 0000 Signed Impressions: Service Date/Time: Thursday, January 26, 2017 15:54 - CONCLUSION: 1. There is a band of low density in the right frontal lobe representing cytotoxic edema likely representing an area of recent ischemia but likely at least 6-8 hours ago. There is no associated hemorrhage or significant mass effect. 2. No other acute finding is identified. Juan Agarwal MD Chest X-Ray 01/26/17 0000 Signed Impressions: Service Date/Time: Thursday, January 26, 2017 16:28 - CONCLUSION: No acute cardiopulmonary disease. Frank Davidson MD Brain MRI 01/26/17 0000 Signed Impressions: Service Date/Time: Thursday, January 26, 2017 20:33 - CONCLUSION: 1. The abnormality identified on earlier CT represents an area of subacute ischemia involving the right frontal lobe in the mid convexity and right basal ganglia. There is no hemorrhage. 2. No other acute finding is identified. Juan Agarwal MD Objective Remarks GENERAL: This is a well-nourished, well-developed patient, in no apparent distress. CARDIOVASCULAR: Regular rate and regular rhythm without murmurs, gallops, or rubs. RESPIRATORY: Clear to auscultation. Breath sounds equal bilaterally. No wheezes , rales, or rhonchi. GASTROINTESTINAL: Abdomen soft, non-tender, nondistended. Normal, active bowel sounds MUSCULOSKELETAL: Extremities without clubbing, cyanosis, or edema. NEURO: Alert & Oriented x4 to person, place, time, situation. Moves all ext x4 Procedures none Medications and IVs Current Medications Aspirin (Aspirin Chew) 324 mg ONCE ONCE CHEW Last administered on 01/26/17t 17 :06; Start 01/26/17 at 16:30; Stop 01/26/17 at 16:31; Status DC Insulin Human Regular (NovoLIN R INJ) 10 units ONCE ONCE IV PUSH ; Start at 16:45; Stop 01/26/17 at 16:46; Status Cancel Sodium Bicarbonate (Sodium Bicarbonate 8.4% Inj) 50 meq ONCE ONCE SLOW IVP Last administered on 01/26/17 17:10; Start 01/26/17 at 16:30; Stop 01/26/17 at 16:31; Status DC Albuterol Sulfate (Albuterol Concentrated Neb) 10 mg ONCE ONCE INH Last administered on 01/26/17 16:30; Start 01/26/17 at 16:30; Stop 01/26/17 at 16:31 ; Status DC Albuterol Sulfate (Albuterol Neb) 2.5 mg STK-MED ONCE .ROUTE ; Start 01/26/17 at 16:32; Stop 01/26/17 at 16:33; Status DC Labetalol HCl (Trandate Inj) 5 mg ONCE ONCE IV PUSH ; Start 01/26/17 at 16:45; Stop 01/26/17 at 17:11; Status DC Iohexol (Omnipaque 350 Inj) 100 ml STK-MED ONCE IV Last administered on 16:35; Start 01/26/17 at 16:35; Stop 01/26/17 at 16:36; Status DC Insulin Human Regular (NovoLIN R INJ) 10 units ONCE ONCE SQ Last administered on 01/26/17 17:00; Start 01/26/17 at 17:00; Stop 01/26/17 at 17:01; Status DC Hydralazine HCl (Apresoline Inj) 10 mg Q8H PRN IV PUSH SBP >200 OR DBP >120 Last administered on 01/27/17 21:42; Start 01/26/17 at 17:15; Stop 01/28/17 at 10:34; Status DC Dextrose (D50w (Vial) Inj) 50 ml UNSCH PRN IV HYPOGLYCEMIA-SEE COMMENTS; Start 01/26/17 at 17:15 Glucagon (Glucagon Inj) 1 mg UNSCH PRN OTHER HYPOGLYCEMIA-SEE COMMENTS; Start 01/26/17 at 17:15 Insulin Aspart 1 1 ACHS SLIDING SCALE SQ Last administered on 01/28/17 20:17 ; Start 01/26/17 at 21:00 Sodium Chloride (NS 1000 ml Inj) 1,000 ml @ 100 mls/hr Q10H IV Last administered on 01/27/17 15:04; Start 01/26/17 at 18:00 Ondansetron HCl (Zofran Inj) 4 mg Q8HR PRN IV PUSH NAUSEA Last administered on 01/27/17 23:46; Start 01/26/17 at 17:30 Aspirin (Aspirin Chew) 81 mg DAILY CHEW Last administered on 01/29/17 09:32; Start 01/27/17 at 09:00 Labetalol HCl (Trandate Inj) 5 mg ONCE ONCE IV PUSH Last administered on 00:02; Start 01/26/17 at 23:45; Stop 01/26/17 at 23:46; Status DC Potassium Chloride (KCl) 20 meq ONCE ONCE PO Last administered on 01/27/17 10 :37; Start 01/27/17 at 10:00; Stop 01/27/17 at 10:01; Status DC Enoxaparin Sodium (Lovenox Inj) 40 mg Q24H SQ Last administered on 01/28/17 09 :06; Start 01/27/17 at 10:00 Acetaminophen (Tylenol) 650 mg Q4H PRN PO PAIN1-10/HEADACHE/FEVER Last administered on 01/29/17 06:51; Start 01/27/17 at 10:00 Atorvastatin Calcium (Lipitor) 80 mg HS PO Last administered on 01/28/17 20:16 ; Start 01/27/17 at 21:00 Lisinopril (Prinivil) 10 mg DAILY PO Last administered on 01/29/17 09:32; Start 01/28/17 at 11:00 Insulin Detemir (Levemir Inj) 5 units HS SQ Last administered on 01/28/17 20: 17; Start 01/28/17 at 21:00 Enalaprilat (Vasotec Inj) 1.25 mg Q8H PRN IV PUSH SBP>180, DBP>110; Start at 10:45 A/P Assessment and Plan A/P - CVA continue with aspirin and high-intensity statin- CTA neck with no significant stenosis- echo with EF 55% and LVH. consulted PT/OT/ ST. neurology consult appreciated. -hyperkalemia; resolved- now with mild hypokalemia which was replaced. -hypertension; improved- start on lisinopril - f/u as outpatient. -diabetes mellitus; resumed levemir - accu-check with SSI- A1c 9.8- -DVT prophylaxis with lovenox. Discharge Planning dc to rehab when arrangements made. see med list. f/u; pcp and neurology. d/w the patient and her family at the bedside. d/w the RN. time spent 32 min. Carla Busby MD Jan 29, 2017 10:20
[2017-01-29] MEDS ORDERED: ATOR1TAB18 PO (10:25)
[2017-01-29] MEDS ORDERED: ASPI81CH25 CHEW (10:25)
[2017-01-29] MEDS ORDERED: LISI10TA3 PO (10:25)
[2017-01-29] MEDS ORDERED: NOVOLOGSS SQ (10:25)
[2017-01-29] MEDS ORDERED: LEVEMIR SQ (10:25)
--- NOTE | 2017-01-29 10:25 | HHI.DCPOC ---
Discharge Care Plan Diagnosis: (1) Ischemic cerebrovascular accident (CVA) of frontal lobe Your Health Problems Are: Loss of Movements Goals to Promote Your Health * To prevent worsening of your condition and complications * To maintain your health at the optimal level Directions to Meet Your Goals Take your medications as prescribed Follow your dietary instruction Follow activity as directed Keep your appointments as scheduled Take your immunizations and boosters as scheduled If your symptoms worsen call your PCP, if no PCP go to Urgent Care Center or Emergency Room Smoking is Dangerous to Your Health. Avoid second hand smoke Call the 24-hour hour crisis hotline for domestic abuse at Carla Busby MD Jan 29, 2017 10:25
--- NOTE | 2017-01-29 10:26 | HHI.DS ---
Discharge Summary Admission Date Jan 26, 2017 at 16:52 Discharge Date: Jan 29, 2017 Admitting Diagnosis ACUTE CVA (RIGHT FRONTAL) (1) Ischemic cerebrovascular accident (CVA) of frontal lobe ICD Code: I63.9 Diagnosis: Principal Procedures none Brief History - From Admission patient is a 66 y/o female with history of diabetes and hypertension who was brought to ER as a stroke alert. she says that she ws noted by the family members that she had a left facial droop around noon time earlier today. she denies any headache, vision changes or any focal weakness. she was brought to ER as a stoke alert however since she was out of window she did not receive TPA. CBC/BMP: 01/27/17 0403 01/29/17 0721 Significant Findings Laboratory Tests Test 01/26/17 01/26/17 01/26/17 01/26/17 15:48 15:54 17:16 22:58 Bedside Sodium 135 MMOL/L (138-146) Bedside Potassium 6.9 MMOL/L (3.5-4.9) Bedside Glucose 343 MG/DL (60-95) Total Creatine Kinase 268 U/L (26-192) White Blood Count 12.4 TH/MM3 (4.0-11.0) Neutrophils (%) (Auto) 78.3 % (16.0-70.0) Neutrophils # (Auto) 9.7 TH/MM3 (1.8-7.7) Fibrinogen 442 mg/dL (227-377) Urine Specific [place] 1.049 (1.002-1.035) Urine Glucose (UA) 1000 mg/dL (NEG) Urine Ketones TRACE mg/dL (NEG) Urine Mucus FEW /lpf (OCC) Hemoglobin A1c 9.8 % (4.3-6.0) Test 01/27/17 01/29/17 04:03 07:21 Potassium Level 3.3 MEQ/L (3.5-5.1) Chloride Level 108 MEQ/L 108 MEQ/L (98-107) (98-107) Random Glucose 167 MG/DL 149 MG/DL (74-106) (74-106) Cholesterol Level 221 MG/DL (120-200) LDL Cholesterol 144 MG/DL (0-99) HDL Cholesterol 61.0 MG/DL (40.0-60.0) Blood Urea Nitrogen 19 MG/DL (7-18) Imaging Last Impressions Neck CTA 01/26/17 1544 Signed Impressions: Service Date/Time: Thursday, January 26, 2017 16:11 - CONCLUSION: 1. Mild calcified plaque in the carotid bulbs bilaterally without significant flow-limiting stenosis. No evidence for dissection or other vascular abnormality. Frank Davidson MD Head/Neck CTA with Brain Perfusion 01/26/17 1544 Signed Impressions: Service Date/Time: Thursday, January 26, 2017 16:11 - CONCLUSION: Abnormal CT perfusion examination suggesting infarct core in the right frontal lobe corresponding to the area of cytotoxic edema on CT. The infarct core occupies most of the area of decreased density on CT with small peripheral penumbra. Juan Agarwal MD Head CTA 01/26/17 1544 Signed Impressions: Service Date/Time: Thursday, January 26, 2017 16:11 - CONCLUSION: 1. No evidence for large vessel occlusion involving the right carotid or MCA branches to account for the apparent Subacute right anterior MCA territory infarction. Consider MRI examination to evaluate for underlying lesion once patient is stable. Frank Davidson MD Head CT 01/26/17 0000 Signed Impressions: Service Date/Time: Thursday, January 26, 2017 15:54 - CONCLUSION: 1. There is a band of low density in the right frontal lobe representing cytotoxic edema likely representing an area of recent ischemia but likely at least 6-8 hours ago. There is no associated hemorrhage or significant mass effect. 2. No other acute finding is identified. Juan Agarwal MD Chest X-Ray 01/26/17 0000 Signed Impressions: Service Date/Time: Thursday, January 26, 2017 16:28 - CONCLUSION: No acute cardiopulmonary disease. Frank Davidson MD Brain MRI 01/26/17 0000 Signed Impressions: Service Date/Time: Thursday, January 26, 2017 20:33 - CONCLUSION: 1. The abnormality identified on earlier CT represents an area of subacute ischemia involving the right frontal lobe in the mid convexity and right basal ganglia. There is no hemorrhage. 2. No other acute finding is identified. Juan gAarwal MD PE at Discharge GENERAL: This is a well-nourished, well-developed patient, in no apparent distress. CARDIOVASCULAR: Regular rate and regular rhythm without murmurs, gallops, or rubs. RESPIRATORY: Clear to auscultation. Breath sounds equal bilaterally. No wheezes , rales, or rhonchi. GASTROINTESTINAL: Abdomen soft, non-tender, nondistended. Normal, active bowel sounds MUSCULOSKELETAL: Extremities without clubbing, cyanosis, or edema. NEURO: Alert & Oriented x4 to person, place, time, situation. Moves all ext x4 Hospital Course - CVA continue with aspirin and high-intensity statin- CTA neck with no significant stenosis- echo with EF 55% and LVH. consulted PT/OT/ ST. neurology consult appreciated. -hyperkalemia; resolved- now with mild hypokalemia which was replaced. -hypertension; improved- start on lisinopril - f/u as outpatient. -diabetes mellitus; resumed levemir - accu-check with SSI- A1c 9.8- -DVT prophylaxis with lovenox. Pt Condition on Discharge: Stable Discharge Disposition: Discharge to SNF Discharge Time: > 30 minutes Discharge Instructions DIET: Follow Instructions for: Heart Healthy Diet, Diabetic Diet Activities you can perform: Regular-No Restrictions Follow up Referrals: Neurology PCP Follow-up New Medications: Aspirin (Aspirin Low Strength) 81 Mg Chew 81 MG CHEW DAILY cva Days 30 Ref 0 EA Atorvastatin (Atorvastatin) 80 Mg Tab 80 MG PO HS cva Days 30 Ref 0 TAB Insulin Aspart Inj (Novolog Inj) 100 Unit/Ml Inj 1 UNIT SQ ACHS SLIDING SCALE accu-check AC/HS with novolog sliding scale coverage; 150-200 two units 201-250 four units 251-300 six units 301-350 eight units 351-400 ten units inform MD if < 70 or > 400. diabetes Days 30 INJECTION Insulin Detemir Inj (Levemir Inj) 1,000 unit/ 10 ML Vial 10 UNITS SQ HS diabetes Days 30 Ref 0 INJECTION Lisinopril (Lisinopril) 10 Mg Tab 10 MG PO DAILY hypertension Days 30 Ref 0 TAB Discontinued Medications: Clonidine (Clonidine) 0.2 Mg Tab 0.2 MG PO BID Blood Pressure Management #60 Ref 0 TAB Hydrocodone-Acetaminophen (Hydrocodone-Acetaminophen) 10-325 mg Tab 1 TAB PO Q6H PRN PAIN Ref 0 TAB Insulin Glargine Inj (Lantus Solostar Pen Inj) 300 Unit/3 Ml Pen 3 UNITS SQ Blood Sugar Management Ref 0 PEN Carla Busby MD Jan 29, 2017 10:26
[2017-01-29] MEDS: ENOXAPARIN SODIUM 40 MG/0.4 ML SYRINGE SQ SCH (11:03)
[2017-01-29] MEDS: ATORVASTATIN 80 MG TAB PO SCH (20:28)
[2017-01-29] MEDS: INSULIN DETEMIR 100 UNITS/ML VIAL SQ SCH (20:32)
[2017-01-30] VITALS: BP 140/65; PULSE 82; RESP 20; TEMP 98.4; O2SAT 99
[2017-01-30] MEDS: SODIUM CHLOR 0.9% 1000 ML INJ 1,000 ML IV SCH ×2 (01:26→16:12)
[2017-01-30 04:00] VITALS: BP 133/61; PULSE 72; RESP 20; TEMP 98.3; O2SAT 98
[2017-01-30] MEDS: INSULIN ASPART SUPPLEMENTAL SCALE SQ SCH ×4 (06:03→20:48)
[2017-01-30 08:27] VITALS: BP 182/94; PULSE 60; RESP 18; TEMP 98.4; O2SAT 98
--- NOTE | 2017-01-30 09:20 | HHI.PR ---
Subjective Remarks In bed. Family at bedside. Patient is eating well. No cp, sob, n/v/d/c. Plan to DC to SNF Objective Vitals Vital Signs Date Time Temp Pulse Resp B/P Pulse Ox O2 Delivery O2 Flow Rate FiO2 01/30/17 08:27 98.4 60 18 182/94 98 01/30/17 04:00 98.3 72 20 133/61 98 01/30/17 00:00 98.4 82 20 140/65 99 01/29/17 20:00 99.7 85 20 142/63 99 01/29/17 18:08 88 01/29/17 16:03 97.9 93 18 144/68 96 01/29/17 12:30 99.2 78 18 130/64 98 I/O 01/29/17 01/29/17 01/29/17 01/30/17 01/30/17 01/30/17 07:00 15:00 23:00 07:00 15:00 23:00 Intake Total 240 ml 840 ml 120 ml Balance 240 ml 840 ml 120 ml Intake Oral 240 ml 840 ml 120 ml # Voids 4 3 2 # Bowel Movements 1 0 1 Result Diagram: 01/27/17 0403 01/29/17 0721 Imaging Last Impressions Neck CTA 01/26/171543 Signed Impressions: Service Date/Time: Thursday, January 26, 2017 16:11 - CONCLUSION: 1. Mild calcified plaque in the carotid bulbs bilaterally without significant flow-limiting stenosis. No evidence for dissection or other vascular abnormality. Frank Davidson MD Head/Neck CTA with Brain Perfusion 01/26/171543 Signed Impressions: Service Date/Time: Thursday, January 26, 2017 16:11 - CONCLUSION: Abnormal CT perfusion examination suggesting infarct core in the right frontal lobe corresponding to the area of cytotoxic edema on CT. The infarct core occupies most of the area of decreased density on CT with small peripheral penumbra. Juan Agarwal MD Head CTA 01/26/171543 Signed Impressions: Service Date/Time: Thursday, January 26, 2017 16:11 - CONCLUSION: 1. No evidence for large vessel occlusion involving the right carotid or MCA branches to account for the apparent Subacute right anterior MCA territory infarction. Consider MRI examination to evaluate for underlying lesion once patient is stable. Frank Davidson MD Head CT 01/26/17 0000 Signed Impressions: Service Date/Time: Thursday, January 26, 2017 15:54 - CONCLUSION: 1. There is a band of low density in the right frontal lobe representing cytotoxic edema likely representing an area of recent ischemia but likely at least 6-8 hours ago. There is no associated hemorrhage or significant mass effect. 2. No other acute finding is identified. Juan Agarwal MD Chest X-Ray 01/26/17 Signed Impressions: Service Date/Time: Thursday, January 26, 2017 16:28 - CONCLUSION: No acute cardiopulmonary disease. Frank Davidson MD Brain MRI 01/26/17 Signed Impressions: Service Date/Time: Thursday, January 26, 2017 20:33 - CONCLUSION: 1. The abnormality identified on earlier CT represents an area of subacute ischemia involving the right frontal lobe in the mid convexity and right basal ganglia. There is no hemorrhage. 2. No other acute finding is identified. Juan Agarwal MD Objective Remarks GENERAL: This is a well-nourished, well-developed patient, in no apparent distress. CARDIOVASCULAR: Regular rate and regular rhythm without murmurs, gallops, or rubs. RESPIRATORY: Clear to auscultation. Breath sounds equal bilaterally. No wheezes , rales, or rhonchi. GASTROINTESTINAL: Abdomen soft, non-tender, nondistended. Normal, active bowel sounds MUSCULOSKELETAL: Extremities without clubbing, cyanosis, or edema. NEURO: Alert & Oriented x4 to person, place, time, situation. Moves all ext x4 Procedures none A/P Problem List: (1) Ischemic cerebrovascular accident (CVA) of frontal lobe ICD Code: I63.9 Status: Acute Assessment and Plan - CVA continue with aspirin and high-intensity statin- CTA neck with no significant stenosis- echo with EF 55% and LVH. consulted PT/OT/ ST. neurology consult appreciated. -hyperkalemia; resolved- now with mild hypokalemia which was replaced. -hypertension; improved- start on lisinopril - f/u as outpatient. -diabetes mellitus; resumed levemir - accu-check with SSI- A1c 9.8- -DVT prophylaxis with lovenox. Discharge Planning dc to rehab when arrangements made. f/u; pcp and neurology. d/w the patient and her family at the bedside. d/w the nurse Svitlana De Souza MD Jan 30, 2017 09:20
[2017-01-30] MEDS: ASPIRIN 81 MG CHEW TAB CHEW SCH (09:22)
[2017-01-30] MEDS: LISINOPRIL 10 MG TAB PO SCH (09:22)
[2017-01-30] MEDS: ENOXAPARIN SODIUM 40 MG/0.4 ML SYRINGE SQ SCH (11:54)
[2017-01-30 12:56] VITALS: BP 145/78; PULSE 65; RESP 18; TEMP 97.8; O2SAT 100
[2017-01-30] MEDS: ENALAPRILAT 1.25 MG/ML VIAL IV PUSH PRN (16:00)
[2017-01-30 16:36] VITALS: BP 194/78; PULSE 84; RESP 18; TEMP 97.6; O2SAT 97
[2017-01-30] MEDS: ACETAMINOPHEN 325 MG TAB PO PRN (18:08)
[2017-01-30 20:00] VITALS: BP 145/67; PULSE 82; RESP 20; TEMP 98.4; O2SAT 100
[2017-01-30] MEDS ORDERED: hydrALAZINE HCL 10 MG TAB PO PRN (20:00)
[2017-01-30] MEDS: ATORVASTATIN 80 MG TAB PO SCH (20:46)
[2017-01-30] MEDS: INSULIN DETEMIR 100 UNITS/ML VIAL SQ SCH (20:49)
[2017-01-31] VITALS (7 sets, daily range): BP systolic 129–200; BP diastolic 63–100; PULSE 70–94; RESP 18–20; TEMP 95.8–97.9; O2SAT 95–100
[2017-01-31] MEDS: ENALAPRILAT 1.25 MG/ML VIAL IV PUSH PRN (00:19)
[2017-01-31] MEDS: INSULIN ASPART SUPPLEMENTAL SCALE SQ SCH ×2 (06:19→12:03)
[2017-01-31] MEDS: ASPIRIN 81 MG CHEW TAB CHEW SCH (08:46)
[2017-01-31] MEDS: ENOXAPARIN SODIUM 40 MG/0.4 ML SYRINGE SQ SCH (08:46)
[2017-01-31] MEDS: LISINOPRIL 10 MG TAB PO SCH (08:46)
--- NOTE | 2017-01-31 12:15 | HHI.PR ---
Subjective Remarks In bed. She denies having any cp, sob, n/v/d/c. No fever or chills. No new motor or sensory deficit. Says she is walking some with the walker. No speech difficulties. Objective Vitals Vital Signs Date Time Temp Pulse Resp B/P Pulse Ox O2 Delivery O2 Flow Rate FiO2 01/31/17 10:30 146/74 01/31/17 08:28 96.6 83 18 200/100 99 01/31/17 06:30 80 01/31/17 06:29 94 01/31/17 04:00 97.9 70 20 129/63 96 01/31/17 00:00 97.7 78 20 199/69 95 01/30/17 20:00 98.4 82 20 145/67 100 01/30/17 16:36 97.6 84 18 194/78 97 01/30/17 12:56 97.8 65 18 145/78 100 I/O 01/30/17 01/30/17 01/30/17 01/31/17 01/31/17 01/31/17 07:00 15:00 23:00 07:00 15:00 23:00 Intake Total 120 ml 720 ml 120 ml Balance 120 ml 720 ml 120 ml Intake Oral 120 ml 720 ml 120 ml # Voids 2 3 2 # Bowel Movements 1 0 0 Result Diagram: 01/27/17 0403 01/29/17 0721 Imaging Last Impressions Neck CTA 01/26/171543 Signed Impressions: Service Date/Time: Thursday, January 26, 2017 16:11 - CONCLUSION: 1. Mild calcified plaque in the carotid bulbs bilaterally without significant flow-limiting stenosis. No evidence for dissection or other vascular abnormality. Frank Davidson MD Head/Neck CTA with Brain Perfusion 01/26/171543 Signed Impressions: Service Date/Time: Thursday, January 26, 2017 16:11 - CONCLUSION: Abnormal CT perfusion examination suggesting infarct core in the right frontal lobe corresponding to the area of cytotoxic edema on CT. The infarct core occupies most of the area of decreased density on CT with small peripheral penumbra. Juan Agarwal MD Head CTA 01/26/171543 Signed Impressions: Service Date/Time: Thursday, January 26, 2017 16:11 - CONCLUSION: 1. No evidence for large vessel occlusion involving the right carotid or MCA branches to account for the apparent Subacute right anterior MCA territory infarction. Consider MRI examination to evaluate for underlying lesion once patient is stable. Frank Davidson MD Head CT 01/26/17 0000 Signed Impressions: Service Date/Time: Thursday, January 26, 2017 15:54 - CONCLUSION: 1. There is a band of low density in the right frontal lobe representing cytotoxic edema likely representing an area of recent ischemia but likely at least 6-8 hours ago. There is no associated hemorrhage or significant mass effect. 2. No other acute finding is identified. Juan Agarwal MD Chest X-Ray 01/26/17 0000 Signed Impressions: Service Date/Time: Thursday, January 26, 2017 16:28 - CONCLUSION: No acute cardiopulmonary disease. Frank Davidson MD Brain MRI 01/26/17 0000 Signed Impressions: Service Date/Time: Thursday, January 26, 2017 20:33 - CONCLUSION: 1. The abnormality identified on earlier CT represents an area of subacute ischemia involving the right frontal lobe in the mid convexity and right basal ganglia. There is no hemorrhage. 2. No other acute finding is identified. Juan Agarwal MD Objective Remarks GENERAL: This is a well-nourished, well-developed patient, in no apparent distress. CARDIOVASCULAR: Regular rate and regular rhythm without murmurs, gallops, or rubs. RESPIRATORY: Clear to auscultation. Breath sounds equal bilaterally. No wheezes , rales, or rhonchi. GASTROINTESTINAL: Abdomen soft, non-tender, nondistended. Normal, active bowel sounds MUSCULOSKELETAL: Extremities without clubbing, cyanosis, or edema. NEURO: Alert & Oriented x4 to person, place, time, situation. Moves all ext x4 Procedures none A/P Problem List: (1) Ischemic cerebrovascular accident (CVA) of frontal lobe ICD Code: I63.9 Status: Acute Assessment and Plan - CVA continue with aspirin and high-intensity statin- CTA neck with no significant stenosis- echo with EF 55% and LVH. consulted PT/OT/ ST. neurology consult appreciated. -hyperkalemia; resolved- now with mild hypokalemia which was replaced. -hypertension; improved- start on lisinopril - f/u as outpatient. -diabetes mellitus; resumed levemir - accu-check with SSI- A1c 9.8- -DVT prophylaxis with lovenox. Discharge Planning dc to rehab when arrangements made. f/u; pcp and neurology. d/w the patient, nurse Svitlana De Souza MD Jan 31, 2017 12:15
[2017-01-31] MEDS ORDERED: LISI10TA3 PO (13:00)
[2017-01-31] MEDS ORDERED: LISINOPRIL 10 MG TAB PO SCH (21:00)
== END 2017-01-31 14:28 | DRG 65 ==
LOC: NEPC 15:36 → NEDA 16:52 → N03A 19:21 → N05A 01-28 16:29
PROVIDERS: ADMIT Hospitalist; ATTEND Hospitalist
DX: I63.22 Cerebral infarction due to unspecified occlusion or stenosis of basilar artery (principal); G81.94 Hemiplegia, unspecified affecting left nondominant side; I10 Essential (primary) hypertension; R29.810 Facial weakness; E87.5 Hyperkalemia; E87.6 Hypokalemia; E11.9 Type 2 diabetes mellitus without complications; Z79.4 Long term (current) use of insulin; R29.706 NIHSS score 6
CPT/HCPCS: 0042T; 51702; 70450; 70496; 70498; 70551; 71010; 76937; 80048; 80061; 80307; 81001; 82435; 82550; 82552; 82565; 82947; 82948; 83036; 84132; 84295; 84450; 84460; 84484; 84520; 84702; 85025; 85384; 85610; 85730; 86850; 86900; 86901; 87641; 93005; 93306; 94664; J0360; J1650; J1815; J2405; J7030; J7611; J7613; Q9967